=== PATIENT | female | born 1955 | race African-American/Black ===

== ENCOUNTER → 2020-02-13 | Outpatient (CLI) | payer MEDICARE, OTHER ==
[~2020-02-13] MED LIST: AMLO10TA80 PO; BIMA2.5D4 OP; BRIM.2 BOTHEYE; BUPR100T6 PO; CLON1TAB12 PO; ESOM40CA53 PO; GABA-531 PO; MIRT45TA83 PO; NAPR-679 PO; ROSUVASTATIN PO
== END | disposition home or self-care (01) ==
LOC: LAB 08:10
PROVIDERS: ATTEND Internal Medicine Gastroenterology
DX: Z01.812 Encounter for preprocedural laboratory examination (principal); Z20.828 Contact with and (suspected) exposure to other viral communicable diseases
CPT/HCPCS: C9803; U0003

== ENCOUNTER 2020-02-16 08:33 | Day surgery (SDC) | payer MEDICARE, OTHER ==
[~2020-02-16] VITALS: Ht 162.6 cm; Wt 95.3 kg
[~2020-02-16 08:33] MED LIST changes: -AMLO10TA80 PO; -BIMA2.5D4 OP; -BRIM.2 BOTHEYE; -BUPR100T6 PO; -CLON1TAB12 PO; -ESOM40CA53 PO; -GABA-531 PO; -MIRT45TA83 PO; -ROSUVASTATIN PO
[2020-02-16] MEDS ORDERED: LACTATED RINGERS 1,000 ML IV SCH (10:00)
[2020-02-16] MEDS ORDERED: MIRT45TA83 PO (10:23)
[2020-02-16] MEDS ORDERED: BIMA2.5D4 OP (10:23)
[2020-02-16] MEDS ORDERED: AMLO10TA80 PO (10:23)
[2020-02-16] MEDS ORDERED: BUPR100T6 PO (10:23)
[2020-02-16] MEDS ORDERED: CLON1TAB12 PO (10:23)
[2020-02-16] MEDS ORDERED: BRIM.2 BOTHEYE (10:23)
[2020-02-16] MEDS ORDERED: ROSUVASTATIN PO (10:23)
[2020-02-16] MEDS ORDERED: GABA-531 PO (10:23)
[2020-02-16] MEDS ORDERED: ESOM40CA53 PO (10:23)
[2020-02-16] MEDS ORDERED: PROPOFOL 200MG/20ML VIAL IV ONE ×2 (13:11→13:39)
[2020-02-16] MEDS ORDERED: FENTANYL CITRATE/PF 50MCG/ML 2ML VIAL ONE (13:11)
[2020-02-16] MEDS ORDERED: MIDAZOLAM HCL 2 MG/2 ML VIAL ONE (13:15)
== END 2020-02-16 15:40 | disposition home or self-care (01) ==
LOC: OR 08:33
PROVIDERS: ATTEND Internal Medicine Gastroenterology
DX: R19.7 Diarrhea, unspecified (principal); K21.9 Gastro-esophageal reflux disease without esophagitis; K29.50 Unspecified chronic gastritis without bleeding; K59.00 Constipation, unspecified; R11.2 Nausea with vomiting, unspecified; R12 Heartburn; R14.0 Abdominal distension (gaseous); K57.30 Diverticulosis of large intestine without perforation or abscess without bleeding; K63.89 Other specified diseases of intestine; K31.89 Other diseases of stomach and duodenum; F41.9 Anxiety disorder, unspecified; F32.9 Major depressive disorder, single episode, unspecified; E78.00 Pure hypercholesterolemia, unspecified; Z90.710 Acquired absence of both cervix and uterus; Z98.890 Other specified postprocedural states; Z83.3 Family history of diabetes mellitus; Z79.899 Other long term (current) drug therapy; Z88.8 Allergy status to other drugs, medicaments and biological substances; Z91.013 Allergy to seafood; Z88.2 Allergy status to sulfonamides; Z86.010 Personal history of colon polyps
CPT/HCPCS: 43239; 45380; 88305; 88313; 93005; J2250; J2704; J3010

== ENCOUNTER 2023-01-20 10:06 | Emergency (ER) | payer MEDICARE, MEDICAID ==
[~2023-01-20] VITALS: Ht 162.6 cm; Wt 99.0 kg
[~2023-01-20 10:06] MED LIST changes: +AMLO10TA80 PO; +BIMA2.5D4 OP; +BRIM.2 BOTHEYE; +BUPR-113 PO; +CLON1TAB12 PO; +ESOM40CA53 PO; +GABA-532 PO; +MIRT45TA83 PO; -NAPR-679 PO; +ROSUVASTATIN PO
[2023-01-20 11:13] VITALS: BP 126/82; PULSE 85; RESP 16; TEMP 98.4; O2SAT 100
[2023-01-20] MEDS ORDERED: AMOXICILLIN/POTASSIUM CLAVULANATE 875/125MG TAB PO ONE (12:15)
[2023-01-20] MEDS ORDERED: LIDOCAINE HCL/PF 1% 10 MG/ML 5ML VIAL INFIL ONE (12:15)
[2023-01-20] MEDS ORDERED: BACITRACIN ZINC OINT UDPKT TOP ONE (12:15)
[2023-01-20] MEDS ORDERED: TETANUS, DIPHTHERIA, PERTUSSIS VAC/PF 0.5ML (>10YR OLD) IM ONE ×2 (12:15→14:45)
[2023-01-20] MEDS ORDERED: AMOX1TAB16 MT (14:28)
[2023-01-20] MEDS ORDERED: NAPR-679 MT (14:28)
[2023-01-20] MEDS ORDERED: LIDOCAINE HCL/PF 1% 10 MG/ML 5ML VIAL INFIL NR (14:45)
[2023-01-20] MEDS ORDERED: BACITRACIN ZINC OINT UDPKT TOP NR (14:45)
[2023-01-20] MEDS ORDERED: AMOXICILLIN/POTASSIUM CLAVULANATE 875/125MG TAB PO NR (14:45)
== END 2023-01-20 14:58 | disposition home or self-care (01) ==
LOC: ER 11:08
DX: K04.7 Periapical abscess without sinus (principal); I10 Essential (primary) hypertension; Z88.2 Allergy status to sulfonamides
CPT/HCPCS: 99283; 10060; 90715; 90471; J3490

== ENCOUNTER 2023-12-03 15:57 | Emergency (ER) | payer MEDICARE, MEDICAID ==
[~2023-12-03] VITALS: Ht 167.6 cm; Wt 105.0 kg
[~2023-12-03 15:57] MED LIST changes: +AMOX1TAB16 MT; +NAPR-679 MT
[2023-12-03 16:03] VITALS: PULSE 95
[2023-12-03 16:10] VITALS: BP 170/104; RESP 18; TEMP 98.5; O2SAT 100
[2023-12-03] MEDS ORDERED: ACET-2708 MT (18:42)
== END 2023-12-03 19:42 | disposition home or self-care (01) ==
LOC: ER 15:57
DX: S92.351A Displaced fracture of fifth metatarsal bone, right foot, initial encounter for closed fracture (principal); I10 Essential (primary) hypertension; Z88.2 Allergy status to sulfonamides; Z91.013 Allergy to seafood; W18.39XA Other fall on same level, initial encounter; Y93.89 Activity, other specified; Y92.89 Other specified places as the place of occurrence of the external cause; Y99.8 Other external cause status
CPT/HCPCS: 29515; 73610; 73630; 99284

== ENCOUNTER 2024-11-07 22:22 | Emergency (ER) | payer MEDICARE, MEDICAID ==
[~2024-11-07] VITALS: Ht 167.6 cm; Wt 100.0 kg
[~2024-11-07 22:22] MED LIST changes: +ACET-2708 MT; -ESOM40CA53 PO; +ESOM40CA65 PO; +GABA-1180 PO; -GABA-532 PO
[2024-11-08 01:16] LABS: BASOPHILS % 0.3 % (0.0-2.0); EOSINOPHILS % 0.6 % (0.0-5.0); HEMATOCRIT. 44.3 % (36.0-48.0); HEMOGLOBIN. 15.1 g/dL (12.0-16.0); LYMPHOCYTES % 17.5 % (20.0-50.0); MEAN CORPUSCULAR HEMOGLOBIN 30.4 pg (28.0-32.0); MEAN CORPUSCULAR HGB CONC 34.1 g/dL (31.0-37.0); MEAN CORPUSCULAR VOLUME 89.3 fL (81.0-99.0); MEAN PLATELET VOLUME 8.5 fl (7.4-10.4); MONOCYTES % 7.3 % (2.0-8.0); NEUTROPHILS % 74.3 % (40.0-76.0); PLATELET 302 x1000/uL (130-400); RED BLOOD CELL COUNT 4.96 mill/uL (4.2-5.4); RED CELL DISTRIBUTION WIDTH 14.6 % (11.6-14.6); WHITE BLOOD COUNT 11.2 x1000/uL (4.5-11.0)
[2024-11-08 01:39] LABS: INR 0.9
[2024-11-08 02:17] LABS: CARBON DIOXIDE 24 mEq/L (21-32); CHLORIDE 110 mEq/L (98-107); SODIUM 144 mEq/L (136-145)
[2024-11-08 02:18] LABS: CALCIUM 9.9 mg/dL (8.7-10.4)
[2024-11-08 02:23] LABS: CREATININE 1.1 mg/dL (0.6-1.0); GLUCOSE 106 mg/dL (70-105); UREA NITROGEN BLOOD 5 mg/dL (9-23)
[2024-11-08 02:25] LABS: ALANINE AMINOTRANSFERASE 11 IU/L (10-49); ALBUMIN 4.9 g/dL (3.2-4.8); ASPARTATE AMINOTRANSFERASE 17 IU/L (<34); BILIRUBIN DIRECT 0.1 mg/dL (<=3.0); BILIRUBIN TOTAL 0.4 mg/dL (0.1-1.0); PROTEIN TOTAL 7.7 g/dL (6.0-8.3)
[2024-11-08] MEDS: BENZONATATE 200MG CAPSULE PO ONE (02:26)
[2024-11-08] MEDS: PREDNISONE 20MG TABLET PO STA (02:26)
[2024-11-08] MEDS: ALBUTEROL (0.083%) 2.5MG/3ML NEB HHN STA (03:06)
[2024-11-08 03:07] VITALS: PULSE 90; RESP 24; O2SAT 91
[2024-11-08] MEDS: IPRATROPIUM BROMIDE (0.02%) 0.5MG/2.5ML NEB HHN STA (03:07)
[2024-11-08] MEDS ORDERED: ALBU18HF2 IH (04:38)
[2024-11-08] MEDS ORDERED: IBUP-2029 MT (04:38)
[2024-11-08] MEDS ORDERED: BENZ200C52 MT (04:38)
[2024-11-08 04:49] VITALS: BP 146/93; PULSE 96; RESP 20; TEMP 36.6; O2SAT 100
== END 2024-11-08 04:56 | disposition home or self-care (01) ==
LOC: ER 22:22
DX: J06.9 Acute upper respiratory infection, unspecified (principal); J40 Bronchitis, not specified as acute or chronic; R05.9 Cough, unspecified; R11.10 Vomiting, unspecified; R06.02 Shortness of breath; E11.9 Type 2 diabetes mellitus without complications; I10 Essential (primary) hypertension; Z79.899 Other long term (current) drug therapy; Z79.1 Long term (current) use of non-steroidal anti-inflammatories (NSAID); Z88.2 Allergy status to sulfonamides
CPT/HCPCS: 99284; 71045; 80076; 80048; 85025; 85610; 36415; 94640; 31720; J7512; 94070